=== PATIENT | male | born 1995 ===

== ENCOUNTER 2017-06-04 17:49 | Emergency (ER) | payer MEDICAID, OTHER ==
[2017-06-04 17:49] VITALS: BMI 21.5
[2017-06-04 18:07] VITALS: BP 119/75; PULSE 70; RESP 18; TEMP 98.3; O2SAT 99
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
== END 2017-06-04 19:41 | disposition home or self-care (01) ==
LOC: H.ER 17:49 → MERGE 17:49 → H.ER 19:41
DX: S49.92XA Unspecified injury of left shoulder and upper arm, initial encounter (principal); V19.3XXA Pedal cyclist (driver) (passenger) injured in unspecified nontraffic accident, initial encounter; Y93.55 Activity, bike riding

== ENCOUNTER 2018-07-18 10:56 | Emergency (ER) | payer MEDICAID ==
[2018-07-18] MEDS ORDERED: Naproxen 500 MG TAB PO STA (11:26)
--- NOTE | 2018-07-18 11:28 | ED PDOC ---
HPI: Psych/Substance Abuse Time Seen by Provider: 07/18/18 11:15 Chief Complaint (Nursing): Alcohol Ingestion History Per: Patient Onset/Duration Of Symptoms: Unknown Current Symptoms Are (Timing): Still Present Modifying Factor(s): Cocaine Severity: Moderate Associated Symptoms: Depression, Suicidal Thoughts. denies: Suicidal Plan Additional Complaint(s): Admits to using cocaine x 2 days. Feels depressed, wishes he were but no specific plan. Also c/o pain left thigh, does not recall trauma. Past Medical History Vital Signs: Last Vital Signs Temp Pulse 88 07/18/18 11:17 Resp 18 07/18/18 11:17 BP 117/88 07/18/18 11:17 Pulse Ox 97 07/18/18 11:17 - Medical History PMH: Denies: Diabetes, Hepatitis, HIV, HTN, Chronic Kidney Disease, Seizures, Sexually Transmitted Disease - Family History Family History: States: Unknown Family Hx - Home Medications Home Medications: Ambulatory Orders Medication Instructions Recorded Ondansetron [Zofran Inj] 4 mg IVP Q4 PRN #0 vial 12/28/15 Ibuprofen [Motrin] 600 mg PO Q6 #20 tab 02/16/17 - Allergies Allergies/Adverse Reactions: Allergies Allergy/AdvReac Type Severity Reaction Status Date / Time No Known Allergies Allergy Verified 05/03/15 12:42 Review of Systems ROS Statement: Except As Marked, All Systems Reviewed And Found Negative Musculoskeletal: Positive for: Leg Pain Psych: Positive for: Depression, Suicidal ideation Physical Exam - Reviewed Nursing Documentation Reviewed: Yes Vital Signs Reviewed: Yes - Physical Exam Appears: Positive for: Non-toxic, No Acute Distress Head Exam: Positive for: ATRAUMATIC, NORMAL INSPECTION, NORMOCEPHALIC Skin: Positive for: Normal Color, Warm, DRY Eye Exam: Positive for: EOMI, Normal appearance, PERRL ENT: Positive for: Normal ENT Inspection Neck: Positive for: Normal, Painless ROM Cardiovascular/Chest: Positive for: Regular Rate, Rhythm Respiratory: Positive for: CNT, Normal Breath Sounds Gastrointestinal/Abdominal: Positive for: Normal Exam, Soft Back: Positive for: Normal Inspection Extremity: Positive for: Normal ROM, Tenderness (and ecchymosis left mid lateral thigh. Non tense) Neurologic/Psych: Positive for: Alert, Oriented - Laboratory Results Result Diagrams: 07/18/18 12:11 07/18/18 12:11 - ECG O2 Sat by Pulse Oximetry: 97 Disposition - Clinical Impression Clinical Impression: Polysubstance abuse - Patient ED Disposition Is Patient to be Admitted: No Counseled Patient/Family Regarding: Studies Performed, Diagnosis, Need For Fo llowup, Rx Given - Disposition Referrals: [facility] [Outside] Disposition: Routine/Home Disposition Time: 14:35 Condition: FAIR Instructions: Polysubstance Abuse Forms: [employer] (Korean)
[2018-07-18] MEDS ORDERED: Sodium Chloride 0.9% 1,000 ML IV STA ×2 (11:37→12:59)
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
[2018-07-18 12:17] LABS: BASO # 0.1 K/uL (0.0-0.2); BASO % 0.6 % (0.0-2.0); EOS % 0.2 % (0.0-4.0); HEMOGLOBIN 15.3 g/dL (12.0-18.0); LYMPH # 1.4 K/uL (1.0-4.3); LYMPH % 11.4 % (20.0-40.0); MEAN CELL VOLUME 91.6 fl (80.0-94.0); MEAN CORPUSCULAR HEMOGLOBIN 30.2 pg (27.0-31.0); MEAN PLATELET VOLUME 7.8 fl (7.2-11.7); MONO # 1.1 K/uL (0.0-0.8); MONO % 8.7 % (0.0-10.0); NEUT # 9.5 K/uL (1.8-7.0); NEUT % 79.1 % (50.0-75.0); RBC 5.08 Mil/uL (4.40-5.90); RED CELL DISTRIBUTION WIDTH 14.7 % (11.5-14.5); WHITE BLOOD COUNT 12.1 K/uL (4.8-10.8)
[2018-07-18 12:23] LABS: ALB/GLOB RATIO 1.2 (1.0-2.1); ALBUMIN 4.6 g/dL (3.5-5.0); ALT/SGPT 26 U/L (21-72); AST/SGOT 48 U/L (17-59); BLOOD UREA NITROGEN 11 mg/dl (9-20); CALCIUM 9.3 mg/dL (8.4-10.2); GFR NON-AFRICAN AMERICAN > 60
[2018-07-18 12:40] LABS: BARBITURATES, UR NEGATIVE (NEGATIVE); BENZODIAZEPINES, UR POSITIVE (NEGATIVE); OPIATES, UR NEGATIVE (NEGATIVE); PHENCYCLIDINE, UR POSITIVE (NEGATIVE)
[2018-07-18 15:20] VITALS: BP 118/80; PULSE 69; RESP 14; TEMP 98; O2SAT 98
--- NOTE | 2018-07-19 12:47 | CARD ---
APPROVED REPORT Date of service: 07/18/2018 EKG Measurement Heart [id number] <Conclusion> Normal sinus rhythm with sinus arrhythmia Normal ECG
== END 2018-07-18 15:18 | disposition home or self-care (01) ==
LOC: H.ER 10:56
DX: F19.10 Other psychoactive substance abuse, uncomplicated (principal); F32.9 Major depressive disorder, single episode, unspecified; R11.10 Vomiting, unspecified
CPT/HCPCS: 73552; 80053; 80320; 80324; 80345; 80346; 80349; 80353; 80358; 80361; 82550; 83992; 85025; 93005; 96361; 96374; 96375; 99285; J1885; J2405; J7030